=== PATIENT | male | born 1980 | race African-American/Black ===

== ENCOUNTER 2024-11-16 04:20 | Emergency (ER) | payer OTHER ==
[~2024-11-16] VITALS: Ht 180.3 cm; Wt 79.5 kg
[2024-11-16 04:23] VITALS: BP 140/83; PULSE 84; RESP 20; TEMP 97.9; O2SAT 97
[2024-11-16] MEDS ORDERED: HYDR-4584 PO (04:27)
[2024-11-16 04:46] LABS: APPEARANCE,URINE CLEAR (CLEAR); BILIRUBIN,URINE NEGATIVE (NEGATIVE); COLOR,URINE YELLOW (YELLOW); GLUCOSE, URINE (UA) NEGATIVE (NEGATIVE); LEUKOCYTE ESTERASE ,URINE NEGATIVE (NEGATIVE); NITRATE,URINE NEGATIVE (NEGATIVE); OCCULT BLOOD,URINE NEGATIVE (NEGATIVE); PROTEIN,URINE TRACE mg/dL (NEGATIVE); SPECIFIC GRAVITIY, URINE 1.029 (1.003-1.030); UROBILINOGEN,URINE <=1.0 mg/dL (<=1.0)
[2024-11-16] MEDS: CefTRIAXone SODIUM 1 GM/VIAL IM ONE (06:55)
[2024-11-16] MEDS: LIDOCAINE/PF 1% 2 ML VIAL IM ONE (06:55)
[2024-11-16] MEDS: AZITHROMYCIN 500 MG TABLET PO ONE (06:55)
== END 2024-11-16 07:06 | disposition home or self-care (01) ==
LOC: EMS 04:22
DX: A64 Unspecified sexually transmitted disease (principal)
CPT/HCPCS: 99283; 81003; 96372; J0456; J0696; J3490